=== PATIENT | female | born 1990 | race American Indian/Alaskan Native ===

== ENCOUNTER 2016-10-15 10:07 | Emergency (ER) | payer OTHER ==
[2016-10-15 10:20] VITALS: BP 118/70
--- NOTE | 2016-10-15 11:23 | Emergency Department Report ---
Chief Complaint: Vaginal Bleeding Stated Complaint: PAINFUL CRAMPS/BLEEDING/ODOR Time Seen by Provider: 10/15/16 11:21 - HPI History of Present Illness: PT c/o vaginal spotting with odor x 2 weeks. PT states lmp was September but states she did not have a cycle from Nov 2015 until September 2016 due to stopping Depo in 2016 - ROS Review of Systems: - dysuria + brown - pink vaginal discharge - Exam Vital Signs: Vital Signs 10/15/16 10:11 Temperature 98.9 F Pulse Rate 62 Respiratory 16 Rate Blood Pressure 118/70 O2 Sat by Pulse 99 Oximetry Physical Exam: PT is alert and appropriate in triage gcs 15 steady gait gu exam not performed in triage MSE screening note: Focused history and physical exam performed. Due to findings the following was ordered: labs ED Disposition for MSE Condition: Stable Referrals: PRIMARY CARE, [Primary Care Provider] - 3-5 Days
[2016-10-15 11:49] LABS: Basophils % (Auto) 0.6 % (0.0-1.8); Eosinophils % (Auto) 1.3 % (0.0-4.3); Hematocrit 42.5 % (30.3-42.9); Hemoglobin 13.7 gm/dl (10.1-14.3); Mean Corpuscular HGB Conc 32 % (30-34); Mean Corpuscular Hemoglobin 30 pg (28-32); Mean Corpuscular Volume 93 fl (79-97); Platelet Count 242 K/mm3 (140-440); Red Blood Count 4.59 M/mm3 (3.65-5.03); Red Cell Distribution Width 12.6 % (13.2-15.2); White Blood Count 8.4 K/mm3 (4.5-11.0)
[2016-10-15 12:05] LABS: Anion Gap 15 mmol/L; BUN/Creatinine Ratio 13.33; Blood Urea Nitrogen 8 mg/dL (7-17); Calcium 9.2 mg/dL (8.4-10.2); Carbon Dioxide 27 mmol/L (22-30); Chloride 100.5 mmol/L (98-107); Glucose 87 mg/dL (65-100); Potassium 4.6 mmol/L (3.6-5.0); Sodium 138 mmol/L (137-145)
--- NOTE | 2016-10-15 16:00 | Emergency Department Report ---
ED Female HPI - General Chief complaint: Vaginal Bleeding Stated complaint: PAINFUL CRAMPS/BLEEDING/ODOR Time Seen by Provider: 10/15/16 11:21 Source: patient Mode of arrival: Ambulatory Limitations: No Limitations - Related Data Allergies Allergy/AdvReac Type Severity Reaction Status Date / Time No Known Allergies Allergy Unverified 10/15/16 10:10 ED Review of Systems ROS: Stated complaint: PAINFUL CRAMPS/BLEEDING/ODOR Other details as noted in HPI ED Past Medical Hx - Past Medical History Previous Medical History?: No - Surgical History Past Surgical History?: Yes Additional Surgical History: right hip surgery - Social History Smoking Status: Former Smoker Substance Use Type: Alcohol ED Physical Exam - General Limitations: No Limitations ED Course Vital Signs 10/15/16 10:11 Temperature 98.9 F Pulse Rate 62 Respiratory 16 Rate Blood Pressure 118/70 O2 Sat by Pulse 99 Oximetry ED Medical Decision Making - Lab Data Result diagrams: 10/15/16 11:33 10/15/16 11:33 Critical care attestation.: If time is entered above; I have spent that time in minutes in the direct care of this critically ill patient, excluding procedure time. ED Disposition Condition: Stable Referrals: PRIMARY CARE, [Primary Care Provider] - 3-5 Days
[2016-10-15 17:32] LABS: Bacteria,Urine 1+ /HPF (Negative); Bilirubin,Urine NEG (Negative); Blood,Urine NEG (Negative); Ketones,Urine NEG (Negative); Leukocyte Esterase,Urine TR (Negative); Mucus,Urine 1+ /HPF; Nitrite,Urine NEG (Negative); Protein,Urine <15 mg/dL mg/dL (Negative); Urobilinogen,Urine < 2.0 mg/dL (<2.0)
--- NOTE | 2016-10-15 18:36 | Emergency Department Report ---
Entered by OXANA CHAUHAN, acting as scribe for REBEKAH HERNANDEZ PA. ED Female HPI - General Chief complaint: Vaginal Bleeding Stated complaint: PAINFUL CRAMPS/BLEEDING/ODOR Time Seen by Provider: 10/15/16 11:21 Source: patient Mode of arrival: Ambulatory Limitations: No Limitations - History of Present Illness Initial comments: 26 y/o female with no significant PMHx presents to the ED c/o of vaginal bleeding that began 2 weeks ago. Reports associated intermittent cramping low pelvic pain and brown vaginal discharge with foul odor, but she denies nausea, vomiting, fever, chills, dysuria, urgency, and frequency. Patient denies having any pelvic pain currently. Rates abdominal cramps a 0/10 in severity, which is alleviated with nothing and aggravated with movement. Patient states she changes her panty liner 2-3 days a day. Notes her last dose of Depo was in 2015. LMP 09/25/2016. Reports she hasn't had a menstrual cycle from November 2015 to September 2016. Notes engaging in unprotected sexual intercourse 1 month ago. Reports douching 2 days ago with no relief of symptoms. NKDA. NUNEZ Complaint: vaginal bleeding (pinkish), vaginal discharge (brownish) Onset/Timin -: week(s) Radiation: non-radiating Severity: mild Severity scale (0 -10): 0 Quality: cramping Consistency: intermittent Improves with: none Worsens with: movement Are you Now?: No Last Menstrual Period: 09/25/16 EDC: 07/02/17 Associated Symptoms: denies other symptoms, vaginal discharge (brown), vaginal bleeding (pink), abdominal pain (intermittent low pelvic pain). denies: nausea/ vomiting, fever/chills, headaches, loss of appetite, dysuria, hematuria, rash, seizure, shortness of breath, syncope, weakness - Related Data Sexually active: Yes (unprotected 1 month ago) Previous Rx's Medication Instructions Recorded Last Taken Type Nitrofurantoin [facility] [place] [facility]/M-Cryst 100 mg PO Q12HR #14 tab-cap 10/15/16 Unknown Rx [Macrobid CAP] metroNIDAZOLE [Flagyl] 500 mg PO Q12HR #14 tab 10/15/16 Unknown Rx Allergies Allergy/AdvReac Type Severity Reaction Status Date / Time No Known Allergies Allergy Unverified 10/15/16 10:10 ED Review of Systems Comment: All other systems reviewed and negative Constitutional: denies: chills, fever Eyes: denies: eye pain, eye discharge, vision change ENT: denies: ear pain, throat pain Respiratory: denies: cough, shortness of breath, wheezing Cardiovascular: denies: chest pain, palpitations Endocrine: no symptoms reported Gastrointestinal: abdominal pain (intermittent low pelvic pain). denies: nausea , vomiting, diarrhea, constipation, hematemesis, melena, hematochezia Genitourinary: discharge (brown), other (pinkish vaginal bleeding). denies: urgency, dysuria, frequency, hematuria, abnormal menses, dyspareunia Musculoskeletal: denies: back pain, joint swelling, arthralgia Skin: denies: rash, lesions Neurological: denies: headache, weakness, numbness, paresthesias ED Past Medical Hx - Past Medical History Previous Medical History?: No - Surgical History Past Surgical History?: Yes Additional Surgical History: right hip surgery - Family History Family history: no significant - Social History Smoking Status: Former Smoker Substance Use Type: Alcohol Other Social History: single - Medications Home Medications: Home Medications Medication Instructions Recorded Confirmed Last Taken Type Nitrofurantoin [facility]/M-Cryst 100 mg PO Q12HR #14 tab-cap 10/15/16 Unknown Rx [Macrobid CAP] metroNIDAZOLE [Flagyl] 500 mg PO Q12HR #14 tab 10/15/16 Unknown Rx ED Physical Exam - General Limitations: No Limitations General appearance: alert, in no apparent distress - Head Head exam: Present: atraumatic, normocephalic - Eye Eye exam: Present: normal appearance, PERRL, EOMI Pupils: Present: normal accommodation - ENT ENT exam: Present: normal exam, normal orophraynx, mucous membranes moist, TM's normal bilaterally (until), normal external ear exam - Neck Neck exam: Present: normal inspection, full ROM. Absent: tenderness, meningismus, lymphadenopathy, thyromegaly - Respiratory Respiratory exam: Present: normal lung sounds bilaterally. Absent: respiratory distress, wheezes, rales, rhonchi, stridor, accessory muscle use, decreased breath sounds - Cardiovascular Cardiovascular Exam: Present: regular rate, normal rhythm, normal heart sounds. Absent: systolic murmur, diastolic murmur - GI/Abdominal GI/Abdominal exam: Present: soft, normal bowel sounds. Absent: distended, tenderness, guarding, rebound, rigid - Extremities Exam Extremities exam: Present: normal inspection, full ROM, normal capillary refill. Absent: tenderness, pedal edema, joint swelling ( he still continues to use the) - Back Exam Back exam: Present: normal inspection, full ROM. Absent: tenderness, CVA tenderness (R), CVA tenderness (L), muscle spasm, paraspinal tenderness, vertebral tenderness, rash noted - Neurological Exam Neurological exam: Present: alert, oriented X3, normal gait, reflexes normal. Absent: motor sensory deficit - Psychiatric Psychiatric exam: Present: normal affect, normal mood - Skin Skin exam: Present: warm, dry, intact, normal color. Absent: rash, cyanosis ED Course Vital Signs 10/15/16 10:11 Temperature 98.9 F Pulse Rate 62 Respiratory 16 Rate Blood Pressure 118/70 O2 Sat by Pulse 99 Oximetry - Reevaluation(s) Reevaluation #1: 10/15/16 18:27 Patient stable throughout ED course ED Medical Decision Making - Lab Data Result diagrams: 10/15/16 11:33 10/15/16 11:33 Lab Results 10/15/16 10/15/16 10/15/16 Range/Units 11:33 11:33 11:33 WBC 8.4 (4.5-11.0) K/mm3 RBC 4.59 (3.65-5.03) M/mm3 Hgb 13.7 (10.1-14.3) gm/dl Hct 42.5 (30.3-42.9) % MCV 93 (79-97) fl MCH 30 (28-32) pg MCHC 32 (30-34) % RDW 12.6 L (13.2-15.2) % Plt Count 242 (140-440) K/mm3 Lymph % (Auto) 31.2 (13.4-35.0) % [facility] % (Auto) 6.7 (0.0-7.3) % Eos % (Auto) 1.3 (0.0-4.3) % Baso % (Auto) 0.6 (0.0-1.8) % Lymph # 2.6 (1.2-5.4) K/mm3 [facility] # 0.6 (0.0-0.8) K/mm3 Eos # 0.1 (0.0-0.4) K/mm3 Baso # 0.0 (0.0-0.1) K/mm3 Seg Neutrophils % 60.2 (40.0-70.0) % Seg Neutrophils # 5.0 (1.8-7.7) K/mm3 Sodium 138 (137-145) mmol/L Potassium 4.6 (3.6-5.0) mmol/L Chloride 100.5 (98-107) mmol/L Carbon Dioxide 27 (22-30) mmol/L Anion Gap 15 mmol/L BUN 8 (7-17) mg/dL Creatinine 0.6 L (0.7-1.2) mg/dL Estimated GFR > 60 ml/min BUN/Creatinine Ratio 13.33 % Glucose 87 (65-100) mg/dL Calcium 9.2 (8.4-10.2) mg/dL HCG, Qual Negative (Negative) Urine Color (Yellow) Urine Turbidity (Clear) Urine pH (5.0-7.0) Ur Specific [place] (1.003-1.030) Urine Protein (Negative) mg/dL Urine Glucose (UA) (Negative) mg/dL Urine Ketones (Negative) mg/dL Urine Blood (Negative) Urine Nitrite (Negative) Urine Bilirubin (Negative) Urine Urobilinogen (<2.0) mg/dL Ur Leukocyte Esterase (Negative) Urine WBC (Auto) (0.0-6.0) /HPF Urine RBC (Auto) (0.0-6.0) /HPF U Epithel Cells (Auto) (0-13.0) /HPF Urine Bacteria (Auto) (Negative) /HPF Urine Mucus /HPF 10/15/16 Range/Units Unknown WBC (4.5-11.0) K/mm3 RBC (3.65-5.03) M/mm3 Hgb (10.1-14.3) gm/dl Hct (30.3-42.9) % MCV (79-97) fl MCH (28-32) pg MCHC (30-34) % RDW (13.2-15.2) % Plt Count (140-440) K/mm3 Lymph % (Auto) (13.4-35.0) % [facility] % (Auto) (0.0-7.3) % Eos % (Auto) (0.0-4.3) % Baso % (Auto) (0.0-1.8) % Lymph # (1.2-5.4) K/mm3 [facility] # (0.0-0.8) K/mm3 Eos # (0.0-0.4) K/mm3 Baso # (0.0-0.1) K/mm3 Seg Neutrophils % (40.0-70.0) % Seg Neutrophils # (1.8-7.7) K/mm3 Sodium (137-145) mmol/L Potassium (3.6-5.0) mmol/L Chloride (98-107) mmol/L Carbon Dioxide (22-30) mmol/L Anion Gap mmol/L BUN (7-17) mg/dL Creatinine (0.7-1.2) mg/dL Estimated GFR ml/min BUN/Creatinine Ratio % Glucose (65-100) mg/dL Calcium (8.4-10.2) mg/dL HCG, Qual (Negative) Urine Color Yellow (Yellow) Urine Turbidity Clear (Clear) Urine pH 6.0 (5.0-7.0) Ur Specific [place] 1.025 (1.003-1.030) Urine Protein <15 mg/dl (Negative) mg/dL Urine Glucose (UA) Neg (Negative) mg/dL Urine Ketones Neg (Negative) mg/dL Urine Blood Neg (Negative) Urine Nitrite Neg (Negative) Urine Bilirubin Neg (Negative) Urine Urobilinogen < 2.0 (<2.0) mg/dL Ur Leukocyte Esterase Tr (Negative) Urine WBC (Auto) 3.0 (0.0-6.0) /HPF Urine RBC (Auto) 2.0 (0.0-6.0) /HPF U Epithel Cells (Auto) 3.0 (0-13.0) /HPF Urine Bacteria (Auto) 1+ (Negative) /HPF Urine Mucus 1+ /HPF Wet prep negative for trichomonas negative yeast positive bacterial vaginosis Gonorrhea and chlamydia pending ED Disposition Clinical Impression: Bacterial vaginosis, Abnormal menstrual cycle, Vaginal discharge, Acute cystitis without hematuria Disposition: TO HOME OR SELFCARE Is pt being admited?: No Does the pt Need Aspirin: No Condition: Stable Instructions: Bacterial Vaginosis (ED), Urinary Tract Infection in Women (ED), Safe Sex (ED) Additional Instructions: please see medication as instructed Please refrain from Douching practice safe sex Prescriptions: metroNIDAZOLE [Flagyl] 500 mg PO Q12HR #[address]/M-Cryst [Macrobid CAP] 100 mg PO Q12HR #14 tab-cap Referrals: PRIMARY CARE, [Primary Care Provider] - 3-5 Days Forms: STI Treatment and Prevention, Work/School Release Form(ED) This documentation as recorded by the TIEN shearer JASMINE,accurately reflects the service I personally performed and the decisions made by ,REBEKAH HERNANDEZ PA.
== END 2016-10-15 18:52 | disposition home or self-care (01) ==
LOC: ED 10:07
DX: N92.5 Other specified irregular menstruation (principal); N76.0 Acute vaginitis; B96.89 Other specified bacterial agents as the cause of diseases classified elsewhere; N30.00 Acute cystitis without hematuria; Z87.891 Personal history of nicotine dependence
CPT/HCPCS: 36415; 80048; 84703; 85025; 87210; 99284

== ENCOUNTER 2017-03-04 04:29 | Emergency (ER) | payer OTHER ==
[2017-03-04 05:35] VITALS: BP 140/78
[2017-03-04 06:59] LABS: Basophils # (Auto) 0.1 K/mm3 (0.0-0.1); Basophils % (Auto) 0.4 % (0.0-1.8); Eosinophils # (Auto) 0.2 K/mm3 (0.0-0.4); Eosinophils % (Auto) 1.4 % (0.0-4.3); Hematocrit 39.4 % (30.3-42.9); Hemoglobin 13.1 gm/dl (10.1-14.3); Lymphocytes # (Auto) 3.6 K/mm3 (1.2-5.4); Lymphocytes % (Auto) 25.9 % (13.4-35.0); Mean Corpuscular HGB Conc 33 % (30-34); Mean Corpuscular Hemoglobin 31 pg (28-32); Mean Corpuscular Volume 93 fl (79-97); Monocytes # (Auto) 0.9 K/mm3 (0.0-0.8); Monocytes % (Auto) 6.5 % (0.0-7.3); Platelet Count 202 K/mm3 (140-440); Red Blood Count 4.26 M/mm3 (3.65-5.03); Red Cell Distribution Width 12.6 % (13.2-15.2)
[2017-03-04 08:16] LABS: Bacteria,Urine 2+ /HPF (Negative); Bilirubin,Urine NEG (Negative); Blood,Urine LG (Negative); Color,Urine Red (Yellow); Nitrite,Urine NEG (Negative); Protein,Urine <15 mg/dL mg/dL (Negative); Urobilinogen,Urine < 2.0 mg/dL (<2.0)
--- NOTE | 2017-03-04 08:52 | Ultrasound Report ---
FINAL REPORT EXAM: US OB < = 14 WEEKS FETUS HISTORY: VAGINAL BLEEDING COMPARISONS: None. FINDINGS: Transabdominal grayscale, color Doppler and M-mode first-trimester ultrasound There is a single living intrauterine with recorded cardiac activity of 116 beats per minute and crown-rump length of approximately 10 millimeters, which corresponds to estimated gestational age of 7 weeks 0 days and delivery date of 10/21/2017. A normal appearing 4 millimeter yolk sac is best demonstrated on transvaginal exam. There is no perigestational hemorrhage. Minimal free fluid in the pelvis. Several transmural and sub serosal uterine fibroids are evident, the largest of which is near the uterine fundus measuring up to 6.5 cm in greatest dimension. A functional 1.9 centimeter cyst is present in the right ovary. The ovaries measure 3.6 x 2.2 x 2 cm on the right and 2.7 x 1.9 x 2.5 cm on the left. IMPRESSION: Single living intrauterine with estimated gestational age of 7 weeks 0 days and delivery date of 10/21/2017. No evident complication.
--- NOTE | 2017-03-04 09:31 | Emergency Department Report ---
ED HPI - General Chief complaint: Vaginal Bleeding Stated complaint: VAGINAL BLEEDING Time Seen by Provider: 03/04/17 09:30 Source: patient, family, RN notes reviewed Mode of arrival: Ambulatory Limitations: No Limitations - History of Present Illness MD Complaint: vaginal bleeding -: Sudden Severity: mild Quality: cramping Consistency: intermittent (X 1) Associated symptoms: vaginal bleeding. denies: nausea/vomiting, vaginal discharge, abdominal pain, dysuria, headache, vision changes, malaise, dysparuenia, rash, seizure, shortness of breath, syncope, weakness Vaginal bleeding: light (STOPPED) :: Yes Number of weeks : 7 - Related Data Previous Rx's Medication Instructions Recorded Last Taken Type Nitrofurantoin [place]/M-Cryst 100 mg PO Q12HR #14 tab-cap 10/15/16 Unknown Rx [Macrobid CAP] metroNIDAZOLE [Flagyl] 500 mg PO Q12HR #14 tab 10/15/16 Unknown Rx Allergies Allergy/AdvReac Type Severity Reaction Status Date / Time No Known Allergies Allergy Unverified 10/15/16 10:10 ED Review of Systems ROS: Stated complaint: VAGINAL BLEEDING Other details as noted in HPI Comment: All other systems reviewed and negative Gastrointestinal: denies: abdominal pain, nausea, vomiting, diarrhea, constipation, hematemesis, melena Genitourinary: discharge (BLOOD X1; STOPPED). denies: urgency, dysuria, frequency, hematuria, abnormal menses, dyspareunia ED Past Medical Hx - Past Medical History Previous Medical History?: No Additional medical history: G 1 - Surgical History Additional Surgical History: right hip surgery - Social History Smoking Status: Never Smoker Substance Use Type: None - Medications Home Medications: Home Medications Medication Instructions Recorded Confirmed Last Taken Type Nitrofurantoin [place]/M-Cryst 100 mg PO Q12HR #14 tab-cap 10/15/16 Unknown Rx [Macrobid CAP] metroNIDAZOLE [Flagyl] 500 mg PO Q12HR #14 tab 10/15/16 Unknown Rx ED Physical Exam - General Limitations: No Limitations General appearance: alert, in no apparent distress - Head Head exam: Present: atraumatic - Eye Eye exam: Present: PERRL - ENT ENT exam: Present: mucous membranes moist - Neck Neck exam: Present: normal inspection - Respiratory Respiratory exam: Present: normal lung sounds bilaterally - Cardiovascular Cardiovascular Exam: Present: regular rate - GI/Abdominal GI/Abdominal exam: Present: soft, normal bowel sounds. Absent: distended, tenderness, guarding, rebound, rigid, diminished bowel sounds, hyperactive bowel sounds, hypoactive bowel sounds, organomegaly, mass, bruit, pulsatile mass - Rectal Rectal exam: Present: deferred - Extremities Exam Extremities exam: Present: normal inspection, full ROM, normal capillary refill. Absent: tenderness - Back Exam Back exam: Present: normal inspection, full ROM. Absent: tenderness, CVA tenderness (R), CVA tenderness (L) - Neurological Exam Neurological exam: Present: alert, oriented X3, CN II-XII intact, normal gait, reflexes normal - Psychiatric Psychiatric exam: Present: normal affect, normal mood - Skin Skin exam: Present: warm, dry, intact, normal color ED Course Vital Signs 03/04/17 03/04/17 04:35 05:30 Temperature 98.3 F 98.3 F Pulse Rate 72 74 Respiratory 18 18 Rate Blood Pressure 140/78 140/78 O2 Sat by Pulse 99 99 Oximetry - Reevaluation(s) Reevaluation #1: 03/04/17 09:55 TO ER W VAG BLEED X 1 PREG 7 W HAS SEEN OB THIS SCARED PT SO TO ER VSS NO PAIN NO MORE BLEEDING LABS NOTED US NOTED AMBULATORY TAKING PO G1 DISCUSSED WITH DR COPELAND MA HOME W OBGYN FOLLOW UP HER 88, RR 18, TEMP 98, BP 118/78 ON MA ED Medical Decision Making - Lab Data Result diagrams: 03/04/17 06:01 - Radiology Data Radiology results: report reviewed, image reviewed - Medical Decision Making SEE NOTE - Differential Diagnosis RO AB Critical care attestation.: If time is entered above; I have spent that time in minutes in the direct care of this critically ill patient, excluding procedure time. ED Disposition Clinical Impression: Threatened , Disposition: DC- TO HOME OR SELFCARE Is pt being admited?: No Does the pt Need Aspirin: No Condition: Stable Instructions: Threatened Miscarriage (ED) Additional Instructions: SEE OBGYN IN AM FOR FOLLOW [place] [id number] ULTRASOUND REPORT CAN BE OBTAINED IN [employer] REST HYDRATE WELL WITH WATER CONTINUE VITAMIN NO ALCOHOL OR DRUGS NOTHING IN VAGINA. Referrals: [facility] [Other] - 3-5 Days Time of Disposition: 09:36
== END 2017-03-04 09:40 | disposition home or self-care (01) ==
LOC: ED 04:29
DX: O20.0 Threatened abortion (principal); Z3A.01 Less than 8 weeks gestation of pregnancy
CPT/HCPCS: 36415; 76801; 76817; 81001; 84702; 85025; 86900; 86901; 87086